=== PATIENT | male | born 1965 | race African-American/Black ===

== ENCOUNTER 2018-07-29 06:44 | Observation (INO) ==
[2018-07-29 07:45] LABS: Basophils % 0.4 % (0.0-0.8); Eosinophils % 0.4 % (0.00-10.9); Hemoglobin 6.8 GM/DL (14.0-18.0); Immature Granulocytes % 4.1 %; Immature Granulocytes Absolute 0.23 #; Lymphocytes # 0.9 10*3/uL (1.4-4.0); Mean Corpuscular HGB Conc 29.6 GM/DL (32-36); Mean Corpuscular Hemoglobin 26 PG (27-34); Mean Corpuscular Volume 86.8 FL (87-102); Mean Platelet Volume 10.9 FL (9.6-12.0); Monocytes # 0.9 10*3/uL (0.11-0.8); Monocytes % 16.9 % (1.7-12.7); NRBC # 0.07 10*3/uL; Neutrophils # 3.5 10*3/uL (1.4-7.4); Neutrophils % 62.2 % (38.7-73.9); Red Blood Count 2.65 MC/CUMM (3.8-5.5); Red Cell Distribution Width 18.3 % (9.3-17.3); White Blood Count 5.6 T/CUMM (4-12)
[2018-07-29 07:47] LABS: Platelet Count 75 T/CUMM (130-400)
[2018-07-29 08:05] LABS: Band Neutrophils 5 % (0-10); Lymphocytes 14 % (20-55); Nucleated Red Blood Cells 1 (0-5); Platelet Estimate Decreased; Segmented Neutrophils 71 % (50-85); Total Cells Counted 100
[2018-07-29 08:06] LABS: Hypochromasia 1+; Macrocytosis Slight; Ovalocytes Slight; Polychromasia Slight
[2018-07-29 08:30] LABS: Albumin 2.9 G/DL (3.4-5.0); Bilirubin,Total 0.7 MG/DL (0.2-1.0); Calcium 10.5 MG/DL (8.5-10.1); Osmolality,Calculated 278.7 MOS/KG (273-304); Potassium 4.1 MMOL/L (3.5-5.1); Total Protein 6.1 G/DL (6.4-8.3); Uric Acid 5.2 MG/DL (3.5-7.2)
[2018-07-29] MEDS: ALLOPURINOL 300 MG TABLET PO SCH (09:26)
[2018-07-29] MEDS: SODIUM BICARB INJ 50 MEQ in DEXTROSE 5% 1,000 ML IV SCH ×2 (09:26→18:11)
[2018-07-29] MEDS ORDERED: HEPARIN LOCK FLUSH 500 UNIT/5 ML SYRINGE IV PRN (09:37)
[2018-07-29] MEDS ORDERED: DEXAMETHASONE INJ 20 MG in SODIUM CHLORIDE 0.9% 50 ML IV ONE (12:00)
[2018-07-29] MEDS ORDERED: GRANISETRON 1 MG/1 ML VIAL IV ONE (12:00)
[2018-07-29] MEDS ORDERED: CYCLOPHOSPHAMIDE INJ 1,500 MG in SODIUM CHLORIDE 0.9% 250 ML IV ONE (13:00)
[2018-07-29] MEDS ORDERED: vinCRIStine 2 MG in SYRINGE 1 EACH IV ONE (13:00)
[2018-07-29] MEDS ORDERED: riTUXimab 500 MG, riTUXimab 250 MG in SODIUM CHLORIDE 0.9% 675 ML IV ONE (13:00)
[2018-07-29] MEDS ORDERED: DOXOrubicin 100 MG in SYRINGE 1 EACH IV ONE (13:00)
[2018-07-29] MEDS ORDERED: SODIUM CHLORIDE 0.9% 1,000 ML IV PRN (17:52)
[2018-07-30 06:05] LABS: Basophils % 0.2 % (0.0-0.8); Hematocrit 25.7 VOL% (42.0-52.0); Hemoglobin 7.7 GM/DL (14.0-18.0); Immature Granulocytes % 1.9 %; Lymphocytes # 0.4 10*3/uL (1.4-4.0); Lymphocytes % 6.5 % (21.2-54.2); Mean Corpuscular Hemoglobin 26 PG (27-34); Mean Corpuscular Volume 87.1 FL (87-102); Mean Platelet Volume 11.3 FL (9.6-12.0); Monocytes # 0.6 10*3/uL (0.11-0.8); Monocytes % 11.4 % (1.7-12.7); Neutrophils # 4.3 10*3/uL (1.4-7.4); Red Blood Count 2.95 MC/CUMM (3.8-5.5); Red Cell Distribution Width 17.9 % (9.3-17.3); White Blood Count 5.4 T/CUMM (4-12)
[2018-07-30 06:06] LABS: Platelet Count 63 T/CUMM (130-400)
[2018-07-30 06:15] LABS: Albumin 2.7 G/DL (3.4-5.0); Bilirubin,Total 0.7 MG/DL (0.2-1.0); Calcium 9.2 MG/DL (8.5-10.1); Osmolality,Calculated 283.4 MOS/KG (273-304); Total Protein 6.1 G/DL (6.4-8.3); Uric Acid 4.1 MG/DL (3.5-7.2)
[2018-07-30 06:35] LABS: Hypochromasia 1+; Platelet Estimate Decreased
[2018-07-30 06:36] LABS: Microcytosis 1+; Polychromasia Few
[2018-07-30 06:37] LABS: Anisocytosis 1+
[2018-07-30] MEDS: SODIUM BICARB INJ 50 MEQ in DEXTROSE 5% 1,000 ML IV SCH ×2 (08:28→08:31)
[2018-07-30] MEDS: ALLOPURINOL 300 MG TABLET PO SCH (08:29)
[2018-07-30 09:59] VITALS: BP 113/69
== END 2018-07-30 11:00 | disposition home or self-care (01) ==
LOC: N.4E
PROVIDERS: ADMIT Specialist; ATTEND Specialist